=== PATIENT | female | born 1990 | race Caucasian/White ===

== ENCOUNTER 2022-02-09 10:37 | Inpatient (IN) ==
--- NOTE | 2022-02-09 11:13 | History & Physical Report ---
Date of Service February 09, 2022 Assessment & Plan (1) : Plan: Admit for progressing labor (2) Normal labor: Plan: IUP at38 weeks with regular contractions since this morning at 6AM bulging membranes on exam- patient wishes to have an unmedicated if possible accepts IV heplock. will ambulate once heart tracing is reactive History of Present Illness Primary Care Provider: NO PCP Lennie Sanches is a 31 yo female currently at 39+2 WGA with an LISA 02/14/2022 as determined by LMP who is here for evaluation for labor & possible SPROM. Her was uncomplicated. Contractions every 5-6 minutes that began this morning around 6 AM; Moderate movement; Minimal fluid loss; no bloody show External FHT and external uterine monitors used Had regular appointments with OB. Previous Labs: 11/24/2021 Hgb: 11.7 Hct:35.4% 07/07/2021 Blood type: A+ Antibody screen: negative Plt: 378 Rubella: immune VDRL/RPR: negative Gonorrhea: negative Chlamydia: negative HIV: negative HbSAg: negative GBS: negative Other screens: 03/2021 cff-DNA: negative SMA: negative maternal serum AFP: 43.3 (09/01/2021) Allergies Allergy/AdvReac Type Severity Reaction Status Date / Time metoclopramide [From Reglan] Allergy anaphylaxis Verified 02/02/22 13:28 Home Medications Medication Instructions Recorded Confirmed Type prenat.vits,nikita,[id number]-[id number]-[id number] 1 tab PO DAILY 06/30/21 02/02/22 History Patient History Medical History (Updated 02/09/22 @ 11:51 by Rosanna Ortiz MD, FACOG) Varicella vaccination Surgical History (Updated 06/30/21 @ 13:28 by Pina Temple) H/O knee surgery H/O oral surgery Tooth extraction Status post ORIF of fracture of ankle Family History Mother Aplastic anemia Leukemia Phlebitis Grandmother (Paternal) Heart disease Diabetes Denies family history of Ovarian cancer Breast cancer Colorectal cancer Social History (Updated 06/30/21 @ 13:17 by Pina Temple) Smoking Status: Never smoker marital status: marital status details: Luis Sanches (31) [phone] Current Living Situation: Spouse Current Living Situation Comment: lives with spouse, dogs current occupational status: employed current occupation: [employer] service Review of Systems Denies fever, chills, sweats. Denies SOB, difficulty breathing, chest pain, palpitations, and chest pressure. Endorses breast pain earlier in but none today. Denies dysuria. Dull headache earlier in the day but denies changes in vision. Physical Exam Physical Exam: General: Alert and oriented. No acute distress CV: Regular rate and rhythm. No murmurs. Respiratory: CTA bilaterally. No rhonchi, wheezes, or crackles. No increased work of breathing. Abdomen: Gravid; Soft, nontender to palpation Pelvic: Dilated 4 cm; Effacement 100%; Station -[address] Archer Lower extremities: No LE edema. No deep calf pain. Yoan's negative bilaterally. Genitourinary: Manual OB Exam: + amniotic fluid (intact- nitrazine negative. bulging bag on exam) OB Exam Monitor Tracing: + external FHT monitor used, + external uterine monitor used, + category I and + normal FHT variability Supervising Physician Co-Signing Physician Notes Resident Physician Supervision Note: I interviewed and examined the patient. Discussed with Dr. Roman and agree with findings and plan as documented in the note. Any exceptions or clarifications are listed here: [None] Documented By: Rosanna Ortiz MD, FACOG Resident Activity Tracking Resident Involvement: Resident Care Provided Care Provided: OB Delivery
[2022-02-09] MEDS ORDERED: OXYTOCIN 30 UNITS/500 ML BAG IV PRN ×2 (11:44→18:33)
[2022-02-09] MEDS ORDERED: LACTATED RINGER'S 1,000 ML IV PRN (11:44)
[2022-02-09 12:17] LABS: Hematocrit (blood only) 36.1 % (34.1-44.9); Hemoglobin 12.1 g/dl (12.0-16.0); Mean Corpuscular Hemoglobin 29.3 pg (25.0-34.0); Mean Corpuscular Hgb Conc 33.5 g/dL (32.0-36.0); Mean Corpuscular Volume 87.4 fL (80.0-100.0); Mean Platelet Volume 12.5 fL (9.4-12.3); Platelet Count 250 K/uL (130-400); RDW Coefficient of Variation 14.3 % (11.5-14.5); RDW Standard Deviation 45.3 fL (36.4-46.3); Red Blood Count 4.13 M/uL (3.93-5.22); White Blood Count 11.72 K/ul (4.8-10.8)
[2022-02-09 12:45] LABS: Alanine Aminotransferase 20 U/L (7-52); Albumin Level 3.3 gm/dl (3.4-5.0); Alkaline Phosphatase 117 U/L (34-104); Anion Gap 8 (3-11); Aspartate Aminotransferase 23 U/L (13-39); BUN Creatinine Ratio 5.3 (10-20); Bilirubin,Total 0.4 mg/dl (0.2-1.0); Blood Urea Nitrogen 4 mg/dl (6-23); Carbon Dioxide 23 mmol/L (21-32); Chloride 105 mmol/L (98-107); Est GFR (African American) 121.1 ml/min; Est GFR (Non-African American) 104.5 ml/min; Globulin 3.2 gm/dl (2.5-4.0); Glucose 93 mg/dl (70-99(Fasting)); Potassium 3.7 mmol/L (3.5-5.1); Sodium 136 mmol/L (136-145); Total Protein 6.5 gm/dl (6.0-8.3)
[2022-02-09 12:58] LABS: Creatinine Urine Random 365.5 mg/dl; Protein Creatinine Ratio Urine 0.2 (0-0.2); Total Protein Urine Random 62.4 mg/dl (0-11.9)
[2022-02-09] MEDS ORDERED: ePHEDrine sulfate 50 MG/ML AMP IV PRN (16:30)
[2022-02-09] MEDS ORDERED: ONDANSETRON INJ 2 MG/ML 2 ML VIAL IV PRN (16:30)
[2022-02-09] MEDS ORDERED: NALOXONE HCL 1 MG in SODIUM CHLORIDE 0.9% 1000ML 1,000 ML IV PRN (16:30)
[2022-02-09] MEDS ORDERED: NALBUPHINE HCL INJ 10 MG/ML AMP IV PRN (16:30)
[2022-02-09] MEDS ORDERED: diphenhydrAMINE 50 MG/ML VIAL IV PRN (16:30)
[2022-02-09] MEDS ORDERED: NALOXONE HCL 0.4 MG/1 ML VIAL/CARP IV PRN (16:30)
[2022-02-09] MEDS ORDERED: fentaNYL 2MCG/ML ROPIVACAINE 1.25MG/ML 100 ML BAG EPI PRN (16:30)
--- NOTE | 2022-02-09 16:33 | Anesthesiology Consultation ---
Date of Service February 09, 2022 Assessment & Plan (1) Encounter for pre-operative examination: Chart Review Chart Review: Patient NOT seen in Pre Admission Testing and Acceptable Risk for Labor Epidural Consults Requested none History Height/Weight Height: 5 ft 6 in Weight: 118.934 kg Allergies Allergy/AdvReac Type Severity Reaction Status Date / Time metoclopramide [From Reglan] Allergy anaphylaxis Verified 02/02/22 13:28 Medications Home Medications Medication Instructions Recorded Confirmed Last Taken prenat.vits,nikita,[id number] 1 tab PO DAILY 06/30/21 02/09/22 02/08/22 20:00 Active Medications Generic Name Dose Route Start Last Admin Trade Name Freq PRN Reason Stop Dose Admin Lactated Ringer's 1,000 mls @ 125 mls/hr 02/09/22 11:44 02/09/22 13:36 Lr IV 02/11/22 11:43 125 mls/hr .Q8H PRN Infusion L&D Protocol Protocol Past Medical History Medical History Varicella vaccination Exercise / Class Metabolic Activity II 4-5 Yardwork/Stairs/Walk up hill Past Family History Family History Mother Aplastic anemia Leukemia Phlebitis Grandmother (Paternal) Heart disease Diabetes Denies family history of Ovarian cancer Breast cancer Colorectal cancer Past Surgical History Surgical History H/O knee surgery H/O oral surgery Tooth extraction Status post ORIF of fracture of ankle Past Anesthesia History No Hx of Anesthesia Complications and No Family Hx of Anesthesia Complications History of PONV No Hx of PONV and No Hx of Motion Sickness Social History Smoking Status: Never smoker Do You Dip or Chew Tobacco: No Hx Alcohol Use: No Hx Substance Use: No Physical Exam Vital Signs Last Vital Signs Temp 36.4 C L 02/09/22 12:34 Pulse 52 L 02/09/22 12:58 Resp 16 02/09/22 12:34 BP 143/77 H 02/09/22 12:58 Testing Laboratory Results 02/09/22 12:03 02/09/22 12:00
[2022-02-09] MEDS ORDERED: LIDOCAINE 1% LOCAL 20 ML VIAL ONE (18:03)
[2022-02-09] MEDS ORDERED: BENZOCAINE 20% AER SPR 82.5 GM CAN EXT PRN (18:33)
[2022-02-09] MEDS ORDERED: oxyCODONE/ACETAMINOPHEN 5mg/325mg TAB PO PRN (18:33)
[2022-02-09] MEDS ORDERED: IBUPROFEN 600 MG TAB PO PRN (18:33)
[2022-02-09] MEDS ORDERED: HYDROCORTISONE ACETATE 25 MG SUPP PR PRN (18:33)
[2022-02-09] MEDS ORDERED: DIPHTHERIA/TETANUS/PERTUSSIS 0.5 ML SYR/VIAL IM ONE (18:33)
[2022-02-09] MEDS ORDERED: ACETAMINOPHEN 325 MG TAB PO PRN (18:33)
[2022-02-09] MEDS ORDERED: bisacodyL 10 MG SUPP PR PRN (18:33)
--- NOTE | 2022-02-09 18:38 | Delivery Summary ---
Vaginal Delivery Summary Date of Service February 09, 2022 Vaginal Delivery Summary and 1st Degree LAC Patient is a 31-year-old 1 P0 female EDC of 02/14/2022 who presents at 39+ weeks in active labor. She desired an unmedicated . GBS was negative. Membranes were ruptured at 8 cm dilation for clear fluid. She then rapidly went to full dilation and pushed effectively over intact perineum for delivery of a viable male . After the head was delivered the rest of the infant delivered easily and was placed on the mother's abdomen for further attention and drying. The was vigorous and crying on delivery. After 1 minute the cord was clamped and cut. The placenta was then expressed intact with a three- vessel cord. bleeding was controlled with dilute Pitocin and fundal massage. A first-degree perineal laceration was repaired with 3-0 chromic and 1% lidocaine prior to the repair. Estimated blood loss was 200 cc. Mother and were doing well after delivery. [facility] [place] Vaginal Delivery Charge Delivery Type Details: and 1st Degree LAC
[2022-02-09] MEDS: DOCUSATE SODIUM 100 MG CAP PO SCH (21:52)
[2022-02-10 06:21] LABS: Hemoglobin 11.3 g/dl (12.0-16.0); Mean Corpuscular Hemoglobin 29.6 pg (25.0-34.0); Mean Corpuscular Hgb Conc 34.2 g/dL (32.0-36.0); Mean Corpuscular Volume 86.4 fL (80.0-100.0); Mean Platelet Volume 12.6 fL (9.4-12.3); Platelet Count 244 K/uL (130-400); RDW Coefficient of Variation 14.6 % (11.5-14.5); RDW Standard Deviation 45.5 fL (36.4-46.3); Red Blood Count 3.82 M/uL (3.93-5.22)
--- NOTE | 2022-02-10 06:43 | Obstetrical Progress Note ---
Date of Service <Carol Roman DO - Last Filed: 02/10/22 06:43> February 10, 2022 Assessment & Plan <Carolmerlene Roman DO - Last Filed: 02/10/22 06:43> (1) : - Feels well today. Eating well, voiding well, ambulating well - Pain well controlled without analgesics - OOB, ambulation, diet progression as tolerated - VS stable. Hgb 12.1 - Pt and agreeable to discharge today or tomorrow - After discharge, 6 week follow up with Dr. Archer <Rosanna Ortiz MD, FACOG - Last Filed: 02/10/22 07:53> (1) : Subjective <Carol Roman DO - Last Filed: 02/10/22 06:43> Lennie Sanches is a 31 yo female who is now PPD #1 following spontaneous vaginal delivery at 39 weeks. Reports feeling well this morning. Denies abd ominal cramping and 3-4/10 pain (mostly back pain) well managed without analgesics. Voiding normally with some burning d/t the healing laceration. Tolerating meals overnight and able to ambulate some. Denies passing gas and has not had a bowel movement. Some persistent lochia that she describes as mostly blood with some improvement this morning. Currently bottle feeding but may try breast feeding at home. Review of Systems Denies fever, chills, sweats. Denies SOB, difficulty breathing, chest pain, palpitations, and chest pressure. Denies breast pain. Denies dysuria. Denies headache or changes in vision. Physical Exam <Carol Roman DO - Last Filed: 02/10/22 06:43> General: Alert and oriented. No acute distress. CV: Regular rate and rhythm. No murmurs. Respiratory: CTA bilaterally. No rhonchi, wheezes, or crackles. No increased work of breathing. Abdomen: Positive bowel sounds. Soft, nontender, non distended. Uterus: Fundus firm and palpable 1 cm below the umbilicus. Lower extremities: No LE edema. No deep calf pain. Yoan's negative bilaterally. Results & Data ([facility]) <Carol Roman DO - Last Filed: 02/10/22 06:43> Vital Signs (Past 12 Hours) Vital Signs Temp Pulse Pulse Resp BP BP Pulse Ox 02/10/22 03:10 36.7 C 79 18 130/81 02/09/22 23:45 36.8 C 72 18 121/77 98 02/09/22 21:15 36.8 C 84 18 124/82 97 02/09/22 20:30 18 02/09/22 20:00 18 02/09/22 19:30 18 02/09/22 19:15 18 02/09/22 19:15 18 02/09/22 19:00 36.8 C 18 02/09/22 20:13 99 H 02/09/22 20:13 109/62 02/09/22 19:58 100 H 02/09/22 19:58 101/57 L 02/09/22 19:43 86 02/09/22 19:43 107/62 02/09/22 19:28 81 02/09/22 19:28 105/60 02/09/22 19:13 78 02/09/22 19:13 101/53 L 02/09/22 18:58 83 02/09/22 18:58 103/53 L 02/09/22 18:43 75 02/09/22 18:43 111/57 L O2 Del Method 02/10/22 03:10 Room Air 02/09/22 23:45 Room Air 02/09/22 21:15 Room Air 02/09/22 20:30 02/09/22 20:00 02/09/22 19:30 02/09/22 19:15 02/09/22 19:15 02/09/22 19:00 02/09/22 20:13 02/09/22 20:13 02/09/22 19:58 02/09/22 19:58 02/09/22 19:43 02/09/22 19:43 02/09/22 19:28 02/09/22 19:28 02/09/22 19:13 02/09/22 19:13 02/09/22 18:58 02/09/22 18:58 02/09/22 18:43 02/09/22 18:43 <Rosanna Ortiz MD, FACOG - Last Filed: 02/10/22 07:53> Co-Signing Physician Notes Resident Physician Supervision Note: I interviewed and examined the patient. Discussed with Dr. Roman and agree with findings and plan as documented in the note. Any exceptions or clarifications are listed here: [None] Documented By: Rosanna Ortiz MD, FACOG Resident Activity Tracking <Carol Roman, DO - Last Filed: 02/10/22 06:43> Resident Involvement: Resident Care Provided Care Provided: OB Delivery
[2022-02-10] MEDS ORDERED: PRENATAL VITAMIN 1 TAB PO SCH (08:00)
[2022-02-10] MEDS: DOCUSATE SODIUM 100 MG CAP PO SCH (09:17)
[2022-02-10] MEDS ORDERED: bisacodyL 5 MG TABEC PO SCH (20:00)
== END 2022-02-10 19:25 | disposition home or self-care (01) | DRG 807 ==
LOC: OPB 10:37 → 4S1 10:40 → 4E2 20:36

== ENCOUNTER 2023-01-14 06:09 | Inpatient (IN) ==
[2023-01-14] MEDS ORDERED: LACTATED RINGER'S 1,000 ML IV PRN (06:55)
[2023-01-14] MEDS ORDERED: LIDOCAINE 1% LOCAL 20 ML VIAL INFIL PRN (06:55)
[2023-01-14] MEDS ORDERED: OXYTOCIN 30 UNITS/500 ML BAG IV PRN ×2 (06:55→07:03)
[2023-01-14] MEDS ORDERED: HYDROCORTISONE ACETATE 25 MG SUPP PR PRN (07:03)
[2023-01-14] MEDS ORDERED: bisacodyL 10 MG SUPP PR PRN (07:03)
[2023-01-14] MEDS ORDERED: BENZOCAINE 20% AER SPR 82.5 GM CAN EXT PRN (07:03)
[2023-01-14] MEDS ORDERED: ACETAMINOPHEN 325 MG TAB PO PRN (07:03)
[2023-01-14] MEDS ORDERED: IBUPROFEN 600 MG TAB PO PRN (07:03)
[2023-01-14] MEDS ORDERED: oxyCODONE/ACETAMINOPHEN 5mg/325mg TAB PO PRN (07:03)
[2023-01-14] MEDS ORDERED: DIPHTHERIA/TETANUS/PERTUSSIS Vaccine (Tdap, Age 7+yrs) 0.5mL SYR/VL IM ONE (07:03)
[2023-01-14] MEDS ORDERED: OXYTOCIN 10 UNITS/ML 10ML VIAL IM ONE (07:03)
[2023-01-14] MEDS ORDERED: OXYTOCIN 10 UNITS/ML VIAL ONE (07:05)
--- NOTE | 2023-01-14 07:08 | Delivery Summary ---
Vaginal Delivery Summary Date of Service January 14, 2023 Vaginal Delivery Summary and 1st Degree LAC (superficial) Patient is a 32-year-old 2 para 1-0-0-1 female EDC of 01/17/2023 who presented after onset of contractions at 0500 and spontaneous rupture of membranes. She progressed rapidly to complete and in knee-chest position, & pushed effectively over intact perineum for delivery of a viable male at 0645. There was a tight nuchal cord which was clamped and cut prior to delivering the rest of the . The rest of the delivered easily and was vigorous and crying upon arrival. After cord blood was obtained, the placenta was expressed intact with a three-vessel cord. There is a superficial perineal tear which was not bleeding and therefore not repaired. bleeding was controlled with IM Pitocin and fundal massage. Estimated blood loss is 200 cc. Mother and baby were doing well post delivery. [facility] [place] Vaginal Delivery Charge Delivery Type Details: and 1st Degree LAC (superficial)
[2023-01-14 07:31] LABS: Hematocrit (blood only) 37.5 % (37.0-47.0); Hemoglobin 12.9 g/dl (12.0-16.0); Mean Corpuscular Hemoglobin 30.1 pg (25.0-34.0); Mean Corpuscular Hgb Conc 34.4 g/dL (32.0-36.0); Mean Corpuscular Volume 87.4 fL (80.0-100.0); Mean Platelet Volume 11.4 fL (9.4-12.4); Platelet Count 297 K/uL (130-400); RDW Coefficient of Variation 14.1 % (11.5-14.5); RDW Standard Deviation 44.7 fL (36.4-46.3); Red Blood Count 4.29 M/uL (4.20-5.40); White Blood Count 11.01 K/ul (4.8-10.8)
[2023-01-14] MEDS: DOCUSATE SODIUM 100 MG CAP PO SCH ×2 (08:24→21:38)
[2023-01-14] MEDS: PRENATAL VITAMIN 1 TAB PO SCH (08:24)
--- NOTE | 2023-01-15 06:26 | Obstetrical Progress Note ---
Date of Service <Juan Salcido DO - Last Filed: 01/15/23 06:26> January 15, 2023 Assessment & Plan <Juan Salcido DO - Last Filed: 01/15/23 06:26> (1) state: - Feels well today. Eating well, voiding well, ambulating well. - Pain well controlled with ibuprofen 600mg Q4H PRN. - Routine care -- OOB, ambulation, diet progression as tolerated - After discharge will have 6 week follow-up with Dr. Archer. - Will DC today. Day #:: 1 <Bonny Parker MD, FACOG - Last Filed: 01/15/23 07:15> (1) state: Subjective <Juan Salcido DO - Last Filed: 01/15/23 06:26> Ambulation: ambulating normally Voiding: no voiding problems Passing Gas:: Yes Diet Tolerance:: regular diet Lochia:: Small Feeding Type:: bottle feeding Current Pain Level(1-10): 1 Review of Systems Denies fever, chills, sweats Denies shortness of breath, difficulty breathing, chest pain, palpitations, chest pressure. Denies breast pain. Denies dysuria. Denies headache or changes in vision. Physical Exam <Juan Salcido DO - Last Filed: 01/15/23 06:26> General: Alert, oriented. No acute distress. Cardiac: Regular rate and rhythm, no murmurs/rubs/gallops. Respiratory: Clear to auscultation bilaterally a/p, no wheezes/rales/rhonchi. No increased work of breathing. Symmetrical chest rise. No respiratory distress. Abdomen: Soft, nontender, nondistended. Bowel sounds present. Uterus: Uterine fundus firm, palpable 2 cm below umbilicus. Lower Extremities: No lower extremity edema or swelling. No deep calf pain. Yoan's negative bilaterally. Results & Data <Juan Salcido DO - Last Filed: 01/15/23 06:26> Vital Signs (Past 12 Hours) Vital Signs Temp Pulse Resp BP Pulse Ox O2 Del Method 01/15/23 03:10 36.8 C 72 20 113/75 95 Room Air 01/14/23 23:40 36.6 C 69 20 110/70 98 Room Air 01/14/23 19:40 36.6 C 102 H 16 118/67 Room Air <Bonny Parker MD, FACOG - Last Filed: 01/15/23 07:15> Co-Signing Physician Notes Resident Physician Supervision Note: I was present with Dr. Salcido during the history and exam. I discussed the case with the resident and agree with the findings and plan as documented in the note. Any exceptions or clarifications are listed here: doing well, desires dc home. eating, voiding, ambulating without prob. vss abd soft ff 2 down nt, ext nt calves. ppd#1 s/p , will dc home, instructions reviewed. f/u 6 wk pp check. Documented By: Bonny Parker MD, FACOG Resident Activity Tracking <Juan Salcido DO - Last Filed: 01/15/23 06:26> Resident Involvement: Resident Care Provided Care Provided: OB Delivery
[2023-01-15 06:34] LABS: Hematocrit (blood only) 32.1 % (37.0-47.0); Hemoglobin 11.2 g/dl (12.0-16.0); Mean Corpuscular Hemoglobin 30.4 pg (25.0-34.0); Mean Corpuscular Hgb Conc 34.9 g/dL (32.0-36.0); Mean Corpuscular Volume 87.2 fL (80.0-100.0); Mean Platelet Volume 11.2 fL (9.4-12.4); Platelet Count 231 K/uL (130-400); RDW Coefficient of Variation 14.1 % (11.5-14.5); RDW Standard Deviation 45.3 fL (36.4-46.3); Red Blood Count 3.68 M/uL (4.20-5.40); White Blood Count 12.13 K/ul (4.8-10.8)
[2023-01-15] MEDS: PRENATAL VITAMIN 1 TAB PO SCH (09:31)
[2023-01-15] MEDS: DOCUSATE SODIUM 100 MG CAP PO SCH (09:31)
[2023-01-15] MEDS ORDERED: bisacodyL 5 MG TABEC PO SCH (20:00)
== END 2023-01-15 13:05 | disposition home or self-care (01) | DRG 807 ==
LOC: OPB 06:09 → 4S1 06:12 → 4E2 10:05